=== PATIENT | male | born 1960 | race Caucasian/White ===

== ENCOUNTER → 2017-05-01 | Outpatient (CLI) | payer BC ==
[~2017-05-01] MED LIST: CLR10 PO; EPP3/2 IM; [UNRECOGNIZED DRUG - OTHER] PO
[2017-05-01 10:12] LABS: ALT/SGPT 48 U/L (12-78); BLOOD UREA NITROGEN 15 mg/dl (7-18); BUN/CREATININE RATIO 14.7 (10-20); CALCIUM 10.2 mg/dl (8.5-10.1); CARBON DIOXIDE 30 mmol/L (21-32); CHLORIDE 102 mmol/L (98-107); CHOLESTEROL 248 mg/dl (0-200); CREATININE 1.05 mg/dl (0.60-1.40); GLUCOSE 99 mg/dl (70-99); SODIUM 137 mmol/L (136-145); TRIGLYCERIDES 174 mg/dl (0-150); VERY LOW DENSITY LIPOPROT CALC 35 mg/dl
[2017-05-01 10:14] LABS: ALKALINE PHOSPHATASE 71 U/L (45-117); AST/SGOT 26 U/L (15-37); CHOLESTEROL/HDL RATIO 5.9; HDL CHOLESTEROL 42 mg/dl; LDL CHOLESTEROL CALCULATED 171 mg/dl
[2017-05-01 10:19] LABS: ESTIMATED AVERAGE GLUCOSE 126 mg/dl; HA1C FLAG Normal (Normal)
== END | disposition home or self-care (01) ==
LOC: C.LAB 07:46
PROVIDERS: ATTEND Internal Medicine
DX: E78.5 Hyperlipidemia, unspecified (principal); R73.03 Prediabetes